=== PATIENT | male | born 1960 | race Caucasian/White ===

== ENCOUNTER 2017-03-09 14:05 | Inpatient (IN) | payer MEDICARE, MEDICAID ==
[~2017-03-09] VITALS: Ht 152.4 cm; Wt 47.9 kg
--- NOTE | ~2017-03-09 | OR ---
ADMIT: 03/09/2017 RM/LOC: 502 [facility] MR#: [id number] [address] [address] GRAY EDWARDS [address] [address] Operative/Delivery Room Report SEX: M AGE: 56 : 1960 SURGERY DATE: 03/10/2017 SURGEON: Shekhar Vieira MD PREOPERATIVE DIAGNOSIS: Left hip displaced femoral neck fracture. POSTOPERATIVE DIAGNOSIS: Left hip displaced femoral neck fracture. PROCEDURE PERFORMED: Left hip bipolar placement with a DePuy press-fit fracture stem, size 3; an inner diameter 28 head with a +5 neck length; and an outer diameter bipolar head of 43. REMOTE BROADCAST TECHNICIAN: DILLON Boston ANESTHESIA: General. ESTIMATED BLOOD LOSS: 100 mL. FLUIDS: Per anesthetic record. COMPLICATIONS: None. DRAINS: None. TOURNIQUET TIME: None. CONDITION ON DISCHARGE: The patient returned to recovery room in fair condition. INDICATION: The patient is a male with Down syndrome, has been having hip pain, and finally felt pain and fell. X-ray showed a displaced femoral neck fracture, probably a stress fracture. The family desires surgical intervention. They understood the risks and benefits of procedure and desired to proceed with the operation. DESCRIPTION OF PROCEDURE: The patient was taken to the OR, transferred to the OR table, laid in a right lateral decubitus position. After he underwent general anesthesia, all bony prominences were well padded. Axillary roll was placed. Left hip prepped and draped in the usual sterile fashion. A posterolateral approach to the hip was undertaken. I made a 6 to 7 inch incision, centered over the greater trochanter through the skin and subcutaneous tissue. The skin knife, IT band, and gluteus denis fascia split in line with the skin incision using a Gomez scissors. The gluteus denis muscle split in line with its fibers bluntly. Charnley retractor was then placed. External rotators were identified, tagged, cut, and reflected. Posterior capsule was then opened. I then cut the femoral neck at a 45-degree angle to the long axis of the shaft of the femur, approximately 1 fingerbreadth above the lesser trochanter. I then removed the femoral neck and the femoral head. I removed any bony fragments. I then used a box ADMIT: 03/09/2017 RM/LOC: 502 [facility] MR#: [id number] 26[address] [facility] [address] [place], [place] [address] GRAY EDWARDS [address] [address] Operative/Delivery Room Report SEX: M AGE: 56 : 1960 osteotome and removed some lateral femoral neck cortex. I then sequentially reamed and broached to a 3 press-fit broach. I trialed different components, and then a size 43 head with a +5 neck gave excellent range of motion and stability. Thus, trial components were removed and the hip was thoroughly irrigated with bacitracin solution. I then impacted the implant into place and then reduced the hip. I closed the capsule using #1 Vicryl, external rotators were reapproximated into the piriformis fossa through drill holes. The IT band and gluteus denis fascia closed using #1 Vicryl, subcutaneous tissue closed using 2-0 Vicryl, and the skin closed using segun. The wounds were washed, dried, dressed with sterile Adaptic, 4x4s, ABD, Medipore tape. Drapes removed. The patient was reversed from general anesthesia, placed in a knee immobilizer, and transferred back to the recovery room in fair condition. Shekhar Vieira MD/ tavo JOB #: [id number] CC: Alda Monsalve, Attending Physician Alda Monsalve, Family Physician
--- NOTE | 2017-03-12 08:49 | HP ---
ADMIT: 03/09/2017 RM/LOC: 502 [facility] MR#: [id number] [address] [address] TERENCE EDWARDS [address] [address] History and Physical SEX: M AGE: 56 : 1960 DATE OF SERVICE: CHIEF COMPLAINT: Left hip pain. HISTORY OF PRESENT ILLNESS: Terence is a 56-year-old, male with a past medical history significant for Down syndrome and associated mild mental retardation, who fell on Sunday in the bathroom. He was able to ambulate that day and so was just monitored. However, today, he had increasing pain and so was taken to the ER for further evaluation. Upon evaluation, a hip x-ray revealed left subcapital femur fracture. It was recommended that he transfer to [facility] for definitive orthopedic care. PAST MEDICAL HISTORY: 1. Down syndrome. 2. Chronic allergic rhinitis. 3. Chronic dry eyes. 4. Mild mental retardation. 5. Nummular eczema. 6. Osteoarthritis of the shoulder. 7. Raynaud disease for which he takes medications during the winter months. 8. Chronic seborrheic dermatitis. 9. Inguinal hernia, status post repair. No previous complications with anesthesia. MEDICATIONS: 1. Nifedipine ER 30 mg, one tablet at bedtime during the winter months. 2. Pletal 100 mg twice daily during the winter months. 3. Aspirin 81 mg daily. 4. Multivitamin daily. 5. Elocon 0.1% cream to ear canals three times weekly. 6. Nizoral shampoo twice weekly. 7. Triamterene 0.1% cream as needed. 8. Peridex 0.12% solution twice daily. 9. Alaway 0.025% one drop twice daily. ALLERGIES: TO TOBRAMYCIN. SOCIAL HISTORY: The patient is a nonsmoker and nondrinker. FAMILY HISTORY: According to documentation from the [facility], his mother is alive. His father is of unknown cause. He has one brother who is present with him today. REVIEW OF SYSTEMS: As per HPI. Otherwise, reviewed and negative. PHYSICAL EXAMINATION: VITAL SIGNS: Temperature 97.0, pulse 88, blood pressure 104/73, respiratory rate 16, oxygen saturation 90% on room air. GENERAL: The patient is awake, alert, no acute distress. He has features ADMIT: 03/09/2017 RM/LOC: 502 [facility] MR#: [id number] [address] [address] TERENCE EDWARDS [facility] [place] [address] History and Physical SEX: M AGE: 56 : 1960 consistent with chronic Down syndrome. Speech is difficult to understand. He does have baseline tremors of the right upper extremity most notably. HEENT: Remarkable for seborrheic dermatitis. HEART: Regular rate and rhythm. No murmurs are appreciated. LUNGS: Clear to auscultation bilaterally. No crackles or wheezes. ABDOMEN: Soft, nontender, and nondistended. Normal bowel sounds. No organomegaly. EXTREMITIES: Exam was deferred secondary to known hip fracture. SKIN: No obvious rash or skin lesion other than his chronic dermatitis. NEUROLOGIC: The patient has the notable tremors. No other focal neurologic deficit. PSYCHIATRIC: The patient has chronic mental retardation. The patient does answer questions appropriately but appears to have diminished cognition. LABORATORY AND X-RAY DATA: CBC with white blood cell count of 11.1, hemoglobin 15.8, platelets 271. Metabolic panel with sodium 144, potassium 3.7, chloride 110, carbon dioxide 27, BUN 18, glucose 110, creatinine 1.0, calcium 8.8. EKG shows sinus rhythm. IMAGING DATA: Left hip x-ray was performed at an outside facility showing a left subcapital femur fracture. Chest x-ray has been performed but results are pending. ASSESSMENT AND PLAN: 1. Left subcapital femur fracture. Orthopedic Surgery has been consulted and are planning intraoperative repair tomorrow morning. Routine hip fracture orders have been ordered. 2. Deep venous thrombosis prophylaxis. I reviewed the importance of this with the patient and his [id number]. They are agreeable to Lovenox. 3. Chronic Raynaud's phenomenon. He takes medications only during the ADMIT: 03/09/2017 RM/LOC: 502 [facility] MR#: [id number] [address] [address] TERENCE EDWARDS [address] [address] History and Physical SEX: M AGE: 56 : 1960 winter months, so we will hold those at this time. 4. Chronic tremors. We will continue to monitor but recommend avoiding additional new medications at this time. 5. Down syndrome with chronic mitral regurgitation. POA is in agreement with the plan as above. 6. Chronic seborrheic dermatitis. This is currently stable. We will plan to hold his home medications and restart upon discharge. 7. Osteoarthritis. 8. Intolerance to narcotics. We will plan to use Tylenol and NSAIDs preferably for pain control. DISPOSITION: We will plan for discharge pending postoperative followup. Alda Monsalve MD/ tavo JOB #: [id number] CC: Alda Monsalve, Attending Physician Alda Monsalve, Family Physician
--- NOTE | 2017-03-13 15:05 | CO ---
ADMIT: 03/09/2017 RM/LOC: 502 [facility] MR#: [id number] [address] [address] GRAY EDWARDS [address] [place] [address] Consultation SEX: M AGE: 56 : 1960 Corrected: 03/12/2017 1719 ajf and 03/13/2017 1208 njv DATE OF CONSULTATION: 03/09/2017 ATTENDING PHYSICIAN: Alda Monsalve CONSULTING PHYSICIAN: Shekhar Vieira MD ADDENDUM: SUBJECTIVE: Patient is a 56-year-old male with Down syndrome who has been having left hip pain for the last couple weeks, drastically increased in nature here the last day. He was seen up, I believe, in [place]. X-rays show a displaced femoral neck fracture. PHYSICAL EXAMINATION: Shows the patient likes to sit with a pillow underneath his left leg, hurts to toggle his leg. He appears neurologically intact distally. IMAGING DATA: X-rays show what appears to be a subacute femoral neck stress fracture that has gone onto displacement. ASSESSMENT AND PLAN: Left subacute femoral neck fracture. At this point in time, the best thing to do is left hip bipolar. Went over risks and benefits of the surgical intervention with the patient's family, they understand everything and desired to proceed. They understand the risks, which include, but not limited to infection, dislocation, DVT, fracture, , etc., and again desire to proceed. Shekhar Vieira MD/ tavo JOB #: [id number] CC: Alda Monsalve, Attending Physician Alda Monsalve, Family Physician Corrected: 03/12/20171718 ajf and 03/13/2017 1208 njv
[2017-03-14] MEDS ORDERED: PERIDEX DPS473 ML PO (13:14)
[2017-03-14] MEDS ORDERED: SENOKOT S1 TAB PO (13:15)
[2017-03-14] MEDS ORDERED: THERAPEUTIC MUL1 TAB PO (13:15)
[2017-03-14] MEDS ORDERED: ALAWAY10 ML OU (13:15)
[2017-03-14] MEDS ORDERED: LEVAQUIN D750 MG/150 PO (13:16)
[2017-03-14] MEDS ORDERED: LOVENOX DP30 MG/0.3 SQ (13:16)
[2017-03-14] MEDS ORDERED: DUONEB DPS3 ML IH (13:17)
[2017-03-14] MEDS ORDERED: NIZORAL SHAMPO120 ML TP (13:17)
[2017-03-14] MEDS ORDERED: TYLENOL DPS325 MG PO (13:17)
[2017-03-14] MEDS ORDERED: NIZORAL DPS30 GM TP (13:18)
[2017-03-14] MEDS ORDERED: ELOCON TP (13:18)
[2017-03-14] MEDS ORDERED: EUCERIN CREME120 GM TP (13:18)
[2017-03-14] MEDS ORDERED: FOSAMAX70 MG PO (13:20)
--- NOTE | 2017-03-20 15:26 | CO ---
ADMIT: 03/09/2017 RM/LOC: 502 [facility] MR#: [id number] [address] [address] GRAY EDWARDS [address] [address] Consultation SEX: M AGE: 56 : 1960 Corrected: 03/12/2017 1712 ajf DATE OF CONSULTATION: 03/09/2017 ATTENDING PHYSICIAN: lAda Monsalve CONSULTING PHYSICIAN: Shekhar Vieira MD CHIEF COMPLAINT: Left hip fracture. HISTORY OF PRESENT ILLNESS: This is a 56-year-old male, who was seen by Family Medicine up in [place] in the urgent care office this morning. He had a fall on Sunday, and has some soreness with that, but was able to walk throughout the rest of the week. He has been walking up until this morning when he felt a sudden sharp pain and giving way of the leg. He has been self- limiting and nonambulatory since that time. He was seen again in the Urgent Care by Dr. Monica Malik. X-rays obtained diagnostic for displaced femoral neck fracture of the left hip. He was transferred to [facility] for definitive care. He does have significant history of Down's syndrome, and lives in apartment. His brother, Dr. Andrea Edwards who practices in [place] is his medical power of criminal defense attorney. He is in the ER today with his sister. ALLERGIES: TOBRAMYCIN, UNKNOWN. MEDICATIONS: 1. Elocon 0.1% in the ear canals. 2. Nizoral shampoo b.i.d. 3. Triamcinolone 1% p.r.n. 4. Nifedipine ER 30 mg q.24 at bedtime. 5. Pletal 100 mg b.i.d. 6. Aspirin 81 mg daily. 7. Nizoral cream daily. 8. Peridex 0.12% solution b.i.d. 9. Alaway 0.025% twice daily. 10.Multivitamin daily. PAST MEDICAL HISTORY: 1. Down's syndrome. 2. Early-onset dementia. 3. Allergic rhinitis. 4. Chronic dry eye. 5. History of inguinal hernia. 6. Mild mental retardation. 7. Nummular eczema. 8. Osteoarthritis of shoulder. 9. Raynaud's disease. 10.Seborrheic dermatitis. 11.Solitary lung nodule, indeterminate. ADMIT: 03/09/2017 RM/LOC: 502 [facility] MR#: [id number] [address] [address] GRAY EDWARDS [address] [place] [address] Consultation SEX: M AGE: 56 : 1960 PAST SURGICAL HISTORY: Reported by his sister that there was a hernia repair in his surgical history, but we do not have any record of that. FAMILY HISTORY: Some congenital hip dysplasia it sounds like. Otherwise, noncontributory. REVIEW OF SYSTEMS: Unable to obtain reliable review of systems secondary to patient's mental status. PHYSICAL EXAMINATION: GENERAL: This is an otherwise comfortable-appearing, 56- year-old male with obvious sequelae of Down's syndrome, who is lying on the [facility] in the [facility] [place] [facility]. He is in no acute distress. He is pleasant and interactive. Very difficult to understand his communication secondary to Down's syndrome and mental status. He does try to answer questions, and does not appear in distress. EXTREMITIES: Exam of the left lower extremity, shows that his left hip was flexed up in a comfortable position. Any attempts of motion, does create pain. His skin is intact. His neurovascular status is intact distally as far as I can tell with the motion, intact light touch, sensation. DIAGNOSTIC DATA: Reviewed previously obtained x-rays in [place], they do show a displaced femoral neck fracture, some chronic appearance around the femoral neck side of the fracture which would suggest possible stress fracture that finally gave away. Pelvis otherwise intact. It is a Garden IV femoral neck fracture. ASSESSMENT: Left femoral neck fracture. PLAN: Discussed with his sister who is currently with him what our plan will be. We will plan to proceed tomorrow morning to the OR for bipolar hemiarthroplasty by Dr. Vieira. Discussed risks, benefits, and alternatives with his sister. We will discuss those further with his brother who is his medical power of criminal defense attorney and proceed with his consent. In the meantime, standard hip fracture protocol, n.p.o. after midnight, primary care will admit for medical management optimization. Ihsan Beck PA-C / Shekhar Vieira MD / tavo JOB #: [id number] CC: Alda Monsalve, Attending Physician Alda Monsalve, Family Physician Corrected: 03/12/2017 1712 [facility]
--- NOTE | 2017-03-21 14:39 | ER ---
ADMIT: 03/09/2017 RM/LOC: 502 [facility] MR#: [id number] 2620 [facility] [address] GRAY EDWARDS [address] [address] Emergency Room Report SEX: M AGE: 56 : 1960 DATE: 03/09/2017 ADDENDUM: CHIEF COMPLAINT: Left hip pain. HISTORY OF PRESENT ILLNESS: This is a 56-year-old male, who was transferred from [place] for a known hip fracture. It sounds as though he fell on Sunday in the shower and he has been trying to walk on it since. He did see the doctor in the clinic today. Did show a left subcapital hip fracture. I did speak with Dr. Vieira and Dr. Monsalve regarding this patient. A CBC, BMP, EKG, and chest x-ray have been ordered, those are pending at this time. CLINICAL IMPRESSION: Left subcapital femur fracture, closed and displaced. DILOLN Perales / Rell Mendez MD / tavo JOB #: [id number] CC: Alda Monsalve MD, Attending Physician Alda Monsalve MD, Family Physician
--- NOTE | 2017-03-25 07:18 | DS ---
ADMIT: 03/09/2017 RM/LOC: 502 [facility] MR#: [id number] [address] [address] GRAY EDWARDS [address] [address] General Discharge Summary SEX: M AGE: 56 : 1960 ADMISSION DATE: 03/09/2017 DISCHARGE DATE: 03/13/2017 DISCHARGE DIAGNOSES: 1. Left dislocated femoral neck fracture. 2. Urinary tract infection. 3. Hypoxemia. 4. Dysphagia. 5. Healthcare-associated pneumonia versus aspiration pneumonia. 6. Down syndrome. 7. Chronic seborrheic dermatitis. 8. Osteoarthritis. 9. Chronic essential tremors. 10.Raynaud phenomenon. 11.Postoperative hypotension. CONSULT: Orthopedic Surgery, Shekhar Vieira MD. PROCEDURES: Left hip bipolar replacement with the DePuy Press-Fit fracture stem performed on 03/10/2017. REASON FOR ADMISSION: The patient was admitted from the Emergency Department after transferring from an outside facility due to need for definitive treatment of a hip fracture. Please see H and P for full details. The patient was admitted to the medical-surgical floor on the afternoon of March 09. He was kept n.p.o. until evaluated by Surgery with plan for operative repair of his fracture on March 10. Preoperative cardiac clearance was performed and his RCRI criteria was low risk. Chest x-ray was performed at that time, and was within normal limits. Urinalysis was also performed and showed signs of urinary tract infection. He was initiated on ciprofloxacin for this urinary tract infection on March 10. Procalcitonin was within normal limits. It was noted that he was requiring supplemental oxygen on the night of March 09, and therefore incentive spirometer was ordered. His power of contract attorney reported he had intolerance to narcotics and although he did receive a single dose of hydrocodone, pain was managed thereafter by Toradol and Tylenol. There were no known intraoperative complications. Please see procedure note for full details. He was transferred back to the floor for postoperative care. Physical Therapy and Occupational Therapy worked with the patient. Social Work was consulted for need of placement. His blood pressures were noted to be low with a imelda of 77/45, on the evening of March 10. EKG and cardiac enzymes were obtained and were unremarkable. IV fluids were increased. His blood pressure improved from that imelda, but did remain mildly suppressed in the 90 systolic to low 100 systolic. Once blood pressure was determined to be likely near his baseline and he was asymptomatic, his IV fluids were blocked. He had a chest x-ray performed in this workup for his low blood pressures. This was performed on March 11, and showed concerning signs for bilateral infiltrates. He was therefore initiated on Rocephin. Blood cultures were obtained and showed no growth. His oral Cipro that he had been on for his urinary tract infection was changed to IV Levaquin. Nurses ADMIT: 03/09/2017 RM/LOC: 502 [facility] MR#: [id number] [address] [place] [address] GRAY EDWARDS [address] [place] [address] General Discharge Summary SEX: M AGE: 56 : 1960 reported that his cough was increased with oral intake, therefore Speech Therapy was consulted. There were significant signs of aspiration, therefore modified barium swallow was also ordered. This confirmed severe aspiration. Speech Therapy recommended n.p.o. Discussed with his power of contract attorney, who did not wish for tube feeds and understood the risk of aspiration. He was therefore continued with his oral diet with Speech Therapy to continue with behavioral treatment. He had known Raynaud phenomenon and seborrheic dermatitis as an outpatient. His home medications were held as unnecessary during his admission. Placement was found at [facility]. He tolerated his Lovenox for DVT prophylaxis well. He was felt stable for discharge by 03/13/2017. DISCHARGE MEDICATIONS: 1. Peridex 1 ounce swish b.i.d. 2. Senokot 1 tab b.i.d. 3. Multivitamin daily. 4. Alaway 1 drop both eyes twice daily. 5. Levaquin 750 mg p.o. for a total of 10 days. 6. Lovenox 30 mg daily subcu for a total of 14 days. 7. Tylenol p.r.n. 8. DuoNeb p.r.n. 9. Nizoral cream topical daily. 10.Nizoral Shampoo twice weekly. 11.Triam 1% Eucerin cream as needed. 12.Elocon 1% cream t.i.d. to ears as needed. 13.Fosamax 70 mg liquid weekly. DISCHARGE INSTRUCTIONS: The patient was discharged to [facility]. He will continue with physical therapy, occupational therapy, and speech therapy. He will continue with his DNR code status. He will follow up with his usual primary care provider in [place] 1 week after his discharge from his custodial facility and continue to follow with the medical practice manager at the nursing facility as needed. He will also follow with Orthopedic Surgery as recommended for postoperative care. Discharge instructions were reviewed with his power of contract attorney, who is in agreement with transfer and discharge. Greater than 30 minutes was spent in discharge. Alda Monsalve MD/ tavo JOB #: [id number] CC: Alda Monsalve MD, Attending Physician Alda Monsalve MD, Family Physician
== END 2017-03-13 14:00 | DRG 469 ==
LOC: ER 14:05 → 5MS 14:36
PROVIDERS: ADMIT Family Medicine
PROC: 0SRS01A Replacement of Left Hip Joint, Femoral Surface with Metal Synthetic Substitute, Uncemented, Open Approach (ICD-10-PCS; principal; 2017-03-10)
DX: M84.352A Stress fracture, left femur, initial encounter for fracture (principal); J18.9 Pneumonia, unspecified organism; I65.8 Occlusion and stenosis of other precerebral arteries; F03.90 Unspecified dementia, unspecified severity, without behavioral disturbance, psychotic disturbance, mood disturbance, and anxiety; R13.10 Dysphagia, unspecified; N39.0 Urinary tract infection, site not specified; I95.81 Postprocedural hypotension; R09.02 Hypoxemia; Q90.9 Down syndrome, unspecified; J30.9 Allergic rhinitis, unspecified; H04.129 Dry eye syndrome of unspecified lacrimal gland; R25.1 Tremor, unspecified; F70 Mild intellectual disabilities; M19.019 Primary osteoarthritis, unspecified shoulder; L21.9 Seborrheic dermatitis, unspecified; R91.1 Solitary pulmonary nodule; Z79.82 Long term (current) use of aspirin; Z66 Do not resuscitate; Y95 Nosocomial condition